=== PATIENT | female | born 1945 | race Caucasian/White ===

== ENCOUNTER 2018-09-28 07:03 | Observation (INO) | payer OTHER ==
[~2018-09-28] VITALS: Ht 149.9 cm; Wt 66.7 kg
--- NOTE | ~2018-09-28 | OP ---
[address] [address] OPERATIVE REPORT Name: CARLOSALANTONETTE Santo Room: [address] Oscar Peterson#: [id number] Admission: 09/28/18 Attend Phys: Alejandrina Harris DO Discharge: 09/29/18 Date of : 43 Report #: [id number] THIS REPORT FOR: //name// CC: Jemma Harris DATE OF SERVICE: 09/28/2018 PREOPERATIVE DIAGNOSIS: Left breast invasive ductal carcinoma. POSTOPERATIVE DIAGNOSIS: Left breast invasive ductal carcinoma. PROCEDURE: Left simple mastectomy with sentinel lymph node biopsy. SURGEON: Alejandrina Harris DO ANESTHESIA: General endotracheal. RIPRAP PLACING SUPERVISOR: Dr. Yuriy Chao, resident. SPECIMENS: 1. Left breast (stitch ge axillary tail). 2. Left axillary sentinel lymph nodes. ESTIMATED BLOOD LOSS: 150 mL. COMPLICATIONS: None. DRAINS: A 15-Bengali DAWSON drain left within the left inframammary fold. INDICATIONS FOR PROCEDURE: The patient is a 72-year-old female who was found on screening mammogram to have a 4 mm abnormality in the left breast. A core needle biopsy demonstrated invasive ductal carcinoma. The patient desired a mastectomy and therefore, the patient was explained the procedure including risks, benefits and alternatives. All questions were answered to patient's satisfaction, informed consent was obtained. DESCRIPTION OF PROCEDURE: After the patient was brought back to the operating room and placed in supine position. General anesthesia was induced. SCDs were placed in bilateral lower extremities and prophylactic antibiotics were administered. Next, after a timeout was performed, the left breast was prepped and draped in the usual sterile fashion. Radiology had previously injected technetium-99 into the periareolar tissues. Once the patient was in the operating room, 5 mL of Lymphazurin blue were injected into the periareolar tissues and was massaged in the breast for 5 minutes. Next, the left breast and axilla were then prepped and draped in the usual sterile [place] [address] OPERATIVE REPORT Name: ANTONETTE IVNCENT Room: [address] Oscar Peterson#: [id number] Admission: 09/28/18 Attend Phys: Alejandrina Harris DO Discharge: 09/29/18 Date of : 43 Report #: [id number] was performed. An elliptical incision was created from just lateral from the sternum to the left axilla. The first attention was turned towards creating the superior flap. A superior flap dissection was carried down through the subcutaneous tissues using the plasma blade. The superior flap was created just inferior to the clavicle and down to the pectoralis fascia. Next, the inferior flap was created in a similar fashion down to the level of the inframammary fold and just inferior to the inframammary fold. Once the inferior and superior flaps were completed, the left breast was taken from the pectoralis fascia in a medial to lateral fashion. I then identified the axillary contents using the gamma probe as well as visualization of the blue dye. The axillary contents were identified. There were three small palpable lymph nodes, which were identified, isolated and removed circumferentially with Bovie cautery. The first lymph node had a gamma probe count of 2900. The second lymph node measured 75. The third lymph node measured 2956. All 3 lymph nodes were passed off the field and labeled as left axillary sentinel lymph nodes. The gamma probe was then placed within the axilla and no further lymphatic signals were identified greater than approximately 50. At this time, the left breast was noted to identify the latissimus dorsi. The left breast axillary tail was then dissected free from the subcutaneous tissues. It was placed on the back table and a stitch was placed in the axillary tail and sent for pathology. The wound was then inspected. It was irrigated with sterile saline. Hemostasis was noted to be achieved. The patient did have several large vessels that required ligation with 3-0 nylon suture. No active bleeding was identified. Mary was placed within the wound bed. A 15-Bengali 3/4 fluted DAWSON drain was then placed within the left breast under the superior and inferior flaps and was brought out through the left lateral inframammary fold. The skin flaps were then reapproximated with a deep dermal 3-0 Vicryl in interrupted fashion. The skin was then closed with a running 4-0 Monocryl in a subcuticular manner. Dermabond was applied for sterile dressing. A 3-0 nylon drain stitch was then placed. A 4 x 4s fluffs and Medipore tape was then applied over the breast and a surgical bra was then placed. The patient tolerated the procedure well without any complications. All sponge, needle and instrument count was reported as correct x 2 at the end of the case. The patient was awakened from anesthesia in the operating room and taken to the PACU in stable condition for further recovery. By: [id number] Harris DO /jose
--- NOTE | ~2018-09-28 | H ---
[address] [address] HISTORY AND PHYSICAL Name: ANTONETTE VINCENT Room: [address] Oscar Peterson#: [id number] Admission: 09/28/18 Attend Phys: Alejandrina Harris DO Discharge: 09/29/18 Date of : 43 Report #: [id number] THIS REPORT FOR: //name// Please refer to the History and Physical performed in the physician's office. By: [id number] Records Staff [place] /JANETT
[~2018-09-28 07:03] MED LIST: POTASSIUM GLUC500 MG PO; VITAMIN C WIT1000 MG PO; ZOCOR20 MG PO
[2018-09-28 07:47] LABS: HEMATOCRIT 44.2 % (37.0-47.0); HEMOGLOBIN 14.6 gm/dL (12.0-15.0); MCH 29.8 pg (26.0-34.0); MCHC 32.9 g/dL (28.0-37.0); MCV 90.3 fL (80.0-100.0); MPV 8.9 fl. (7.2-11.1); RBC 4.89 mil/uL (4.20-5.00); WBC 4.8 thou/uL (4.0-11.0)
[2018-09-28 07:49] LABS: CALCIUM 9.4 mg/dL (8.5-10.1); CREATININE 0.7 mg/dL (0.6-1.3); POTASSIUM 4.4 mmol/L (3.5-5.1)
[2018-09-28 15:00] VITALS: BP 140/72
--- NOTE | 2018-09-28 16:40 | EKG ---
[place] [address] ELECTROCARDIOGRAM REPORT Name: ANTONETTE VINCENT Room: [address] M.R.#: [id number] Admission: 09/28/18 Attend Phys: Alejandrina Harris DO Discharge: Date of : 43 Report #: [id number] THIS REPORT FOR: //name// [facility] Test Date: 2018-09-28 Test Time: 07:47:21 Pat Name: ANTONETTE VINCENT Department: Room: [facility] Gender: F Remote Ruby On Rails Developer: : 1945 Requested By: Alejandrina Harris Order Number: [id number] Joel MD: Mark Anthony Waggoner Measurements Intervals [place] Rate: 66 P: 64 NM: 139 QRS: 8 QRSD: 84 T: 62 QT: 369 QTc: 387 Interpretive Statements Sinus rhythm No previous ECG available for comparison Electronically Signed On 09-28-2018 16:40:19 R PROGRAMMER by Mark Anthony Waggoner [email or web address] <ELECTRONICALLY SIGNED> By: Mark Anthony Waggoner MD, FAC 09/28/18 1640 0747 0747 Mark Anthony Waggoner MD, FACC /EPI
--- NOTE | 2018-09-28 18:24 | NUR ---
PATIENT ARRIVED TO UNIT AT 1435. ALERT AND ORIENTED X4. DENIES NEED FOR PAIN MEDICATION AT THIS TIME. DENIES NAUSEA. IV IS PATENT AND INFUSING. VSS ON 3L O2. PATIENT HAS BEEN ORIENTED TO ROOM. CALL LIGHT IS WITHIN REACH. NURSING WILL CONTINUE TO MONITOR.
--- NOTE | 2018-09-28 18:27 | NUR ---
ALERT AND ORIENTED X4. UP STAND BY ASSIST TO THE BATHROOM. IV IS PATENT AND INFUSING. PAIN BEING MANAGED WITH PO PAIN MEDICATION. DENIES NAUSEA. TOLERATING DIET. DRESSING IS C/D/I. ICE PACKS ARE IN PLACE. VSS ON 3LO2. CALL LIGHT IS WITHIN REACH. HOURLY ROUNDS HAVE BEEN MAINTAINED SINCE ARRIVING TO UNIT. CALL LIGHT IS WITHIN REACH. NURSING WILL CONTINUE TO MONITOR.
[2018-09-28 20:05] VITALS: BP 114/56
[2018-09-29] VITALS: BP 96/46
[2018-09-29 04:00] VITALS: BP 109/52
--- NOTE | 2018-09-29 05:05 | NUR ---
PT REMAINED A&Ox4 THROUGHOUT SHIFT. INCISION SITE CLEAN, DRY AND INTACT. BRA ON. IV IN R HAND PATENT, INFUSING. PAIN CONTROLLED WITH NORCO. VITALS STABLE. OX 100% ON 3LO2. PT HAS BLUE PEE DUE TO DYE. PT STEADY, STAND BY ASSIST TO BATHROOM DUE TO IV TUBING AND OX TUBING. PT GRANDAUGHTER AT BEDSIDE THROUGHOUT SHIFT. HOURLY ROUNDING COMPLETE. CALL LIGHT WITHIN REACH. WILL CONTINUE TO MONITOR.
[2018-09-29] MEDS ORDERED: HYDROCODONE-AP1 EAC6 PO (08:25)
[2018-09-29 08:45] VITALS: BP 104/55
--- NOTE | 2018-09-29 13:39 | NUR ---
RN SHIFT MGR INFORMED THAT THE PATIENT WILL NEED A WALKER AT D/C. D/C [employer] SPOKE TO ROSIE WITH PROVIDER [employer] TO INFORM OF THE DME REFERRAL FOR A FRONT WHEELED WALKER, AND ASKED HER TO CHECK THE PATIENT'S BENEFITS. ROSIE RETURNED CALL AND TO INFORM OF APPROVAL FOR THE WALKER. D/C [employer] INFORMED P.T. AND THEY WILL DISPENSE A WALKER FOR THE PATIENT. CM WILL REMAIN AVAILABLE TO ASSIST AND FOLLOW NEEDED.
--- NOTE | 2018-09-29 14:30 | NUR ---
VP RHEUMATOLOGY INSTRUCTING PT./DAUGHTER ON EMPTYING DRAIN. AFTERWARDS, CM SPOKE WITH PT.AND DAUGHTERS ABOUT HOME HEALTH. PT.SLEPT DURING CONVERSATION. PT.WILL BE STAYING WITH DAUGHTER,ROBER CHANEL IN [place], [place]. THEY WOULD LIKE TO USE [facility] FOR HH. SPOKE WITH CHELSEA/[facility] AND FAXED HER OP REPORT,DISCHARGE SUMMARY ,ORDER AND FACE SEHET. THEY WILL CALL PT.TO SET UP APPT. SERVICE ADDRESS ON DEMOGRAPHIC SHEET. IT IS [address],[place] [address]. [phone].
[2018-09-29 14:54] VITALS: BP 104/55
[2018-09-29] MEDS ORDERED: ONDANSETRON HCL4 M2 PO (15:44)
[2018-09-29 16:08] VITALS: BP 104/55
--- NOTE | 2018-09-29 16:09 | NUR ---
PATIENT LEFT UNIT BY WHEELCHAIR WITH NURSING STAFF AT 1600. IV DC'D. EDUCATED PATIENT AND CHILDREN ON NEW MED SCRIPTS AND DISCHARGE INSTRUCTIONS. PATIENT AND CHILDREN VERBALIZED UNDERSTANDING. ALL BELONGINGS LEFT WITH PATIENT.
--- NOTE | 2018-10-03 12:05 | PATH ---
[address] [address] PATHOLOGY RPT PROCEDURE Name: NAOMY VINCENT Room: [address] Oscar Peterson#: [id number] Admission: 09/28/18 Date of : 43 Discharge: 09/29/18 Report #: [id number] Path Case #: [id number] [facility] Accession Number: [id number] . 01 Material submitted: . PART A: LEFT BREAST, STITCH LOBATO AXILLARY TAIL PART B: LEFT AXILLARY SENTINEL LYMPH NODES . 01 Clinical history: . Left breast cancer . 02 Diagnosis: A. Left breast, simple mastectomy: - Benign skin and breast with usual ductal epithelial hyperplasia, scattered fibrosis, and scattered luminal calcifications, negative for atypia. See comment. . B. Left axillary sentinel lymph nodes: - Three benign lymph nodes (0/3). See comment. QTP10/02/2018 . 02 Comment: Recent prior left breast core needle biopsy performed around 08/29/2018 in the [facility] system showed invasive mammary carcinoma of no special type (ductal) grade I, spanning 4 mm., with no DCIS and with the following breast tumor profile studies: . ER 88.2%, SC 2.2%, HER2 not overexpressed/1+, and negative by FISH, Ki-67 11.0% ([id number]). . Review of Dr. Micheline Calix MD clinic note reveals the patient to have had a mammographic nodule spanning 3.4 mm at the 12:00 position, 12 cm from the nipple in the left breast. Careful gross exam and extensive sections submitted from the 12:00 region of the breast reveals no malignancy or atypia with fibrosis only suggestive of prior biopsy change. Properly controlled keratin AE1/AE3 performed on B1 and B2 reveals no evidence of metastatic tumor. (LUIS CARLOS:pit 10/02/2018) . 02 Electronically signed: . Ritchie Prieto MD, Pathologist NPI- [id number] . 01 Gross description: . A. The specimen is received in formalin, labeled "Naomy Vincent, left breast, stitch lobato axillary tail". Received is an 890 g mastectomy specimen oriented with a suture designating the axillary tail aspect (a distinct axillary tail is not grossly identified). [place] [address] PATHOLOGY RPT PROCEDURE Name: NAOMY VINCENT Room: [address] Oscar Peterson#: [id number] Admission: 09/28/18 Date of : 43 Discharge: 09/29/18 Report #: [id number] Path Case #: [id number] 21.9 cm from medial to lateral, 19.7 cm from superior to inferior, and 5.1 cm from anterior to posterior. The anterior aspect displays an ellipse of skin measuring 21.6 x 10.8 cm with a centrally located everted nipple and areolar complex, measuring 1.3 x 1.3 and 5.1 x 3.5 cm, respectively. The specimen is inked as follows: Superior/anterior-blue, inferior/anterior-green, posterior-black. Sectioning reveals a pale azevedo possible mass measuring 0.4 x 0.4 x 0.3 cm, which is 0.8 cm from the superior/anterior margin, and is located along the junction between the upper outer and upper inner quadrants. Immediately lateral to the possible mass, there is a small focus of fibrous tissue measuring 0.4 x 0.4 x 0.4 cm. Extensive sectioning through the remainder of the specimen reveals bright yellow fibrofatty tissue throughout with no additional nodules or lesions noted grossly. . Also received within the specimen container is a 79 g aggregate of yellow-azevedo fibroadipose tissue and segments of pale azevedo skin measuring 13.2 x 11.6 x 3.2 cm in aggregate dimensions. Sectioning reveals bright yellow, lobulated cut surfaces throughout with no grossly distinct nodules or lesions. The specimen is submitted representatively as follows: . A1 perpendicular section through nipple A2 entire possible mass at 12:00 aspect A3 account retention representative section immediately medial to possible mass A4-A9 account retention representative sections from 12:00 aspect A10 upper inner quadrant A11 lower inner quadrant A12 lower outer quadrant A13 upper outer quadrant A14-A15 account retention representative sections of separately submitted tissue. . The cold ischemic time is 17 minutes. The total formalin fixation time is 33 hours and 15 minutes. . B. The specimen is received in formalin, labeled "Naomy Vincent, left axillary sentinel lymph nodes". Received are three segments of pale azevedo to yellow-azevedo lobulated tissue ranging in size from 1.3 x 0.9 x 0.5 to 1.5 x 1.0 x 0.9 cm in greatest dimensions. Sectioning reveals three lymph nodes ranging in size from 0.6 to 0.9 cm in maximum dimensions. The specimen is submitted entirely as follows: . B1 two bisected lymph nodes, differentially inked B2 one bisected lymph node. (CAA; 09/29/2018) QAC/QAC . 02 Pathologist provided ICD-10: N62, N60.32 . 02 CPT . [address] [address] PATHOLOGY RPT PROCEDURE Name: NAOMY VINCENT Room: [address] Oscar Peterson#: [id number] Admission: 09/28/18 Date of : 43 Discharge: 09/29/18 Report #: [id number] Path Case #: [id number] Specimen Comment: A courtesy copy of this report has been sent to Specimen Comment: [phone], . Specimen Comment: Report sent to / DR FORD Specimen Comment: A duplicate report has been generated due to demographic updates. Performed at: 01 [facility] [address], [place], [place] [id number] MD Last Daugherty MD Phone: [phone] Performed at: 02 [facility] [address] [facility], [place], [place] [id number] MD Ritchie Prieto MD Phone: [phone]
== END 2018-09-29 16:11 | disposition home or self-care (01) ==
LOC: M.SUR 07:03 → M.TBA 13:22 → M.ORTHSURG 13:22
PROVIDERS: ADMIT Surgery
DX: D05.12 Intraductal carcinoma in situ of left breast (principal); Z79.899 Other long term (current) drug therapy

== ENCOUNTER → 2018-11-22 | Outpatient (CLI) | payer OTHER ==
[~2018-11-22] MED LIST changes: +HYDROCODONE-AP1 EAC6 PO; +ONDANSETRON HCL4 M2 PO
== END ==
LOC: M.RAD 11-15 13:30
DX: M85.88 Other specified disorders of bone density and structure, other site (principal); N91.2 Amenorrhea, unspecified; Z78.0 Asymptomatic menopausal state